=== PATIENT | male | born 1985 | race African-American/Black ===

== ENCOUNTER 2025-03-23 14:58 | Emergency (ER) | payer OTHER, MEDICAID ==
[~2025-03-23] VITALS: Ht 188 cm; Wt 86.4 kg
[2025-03-23 15:24] VITALS: BP 132/83; PULSE 98; RESP 18; TEMP 99.1; O2SAT 95
[2025-03-23] MEDS: ACETAMINOPHEN 500 MG TABLET PO ONE (16:25)
== END 2025-03-23 17:03 ==
LOC: EMS 14:58
DX: S76.311A Strain of muscle, fascia and tendon of the posterior muscle group at thigh level, right thigh, initial encounter (principal); S00.83XA Contusion of other part of head, initial encounter; R07.81 Pleurodynia; J45.909 Unspecified asthma, uncomplicated; Y08.89XA Assault by other specified means, initial encounter; Y93.89 Activity, other specified; Y92.89 Other specified places as the place of occurrence of the external cause; Y99.8 Other external cause status
CPT/HCPCS: 70450; 70486; 71250; 72125; 73502; 99284